=== PATIENT | male | born 1995 | race Caucasian/White ===

== ENCOUNTER 2019-04-04 11:42 | Emergency (ER) | payer SELFPAY ==
[~2019-04-04] VITALS: Ht 193 cm; Wt 68.2 kg
[2019-04-04 13:33] VITALS: BP 121/76
== END 2019-04-04 13:35 | disposition home or self-care (01) ==
LOC: ED 12:30
DX: R07.89 Other chest pain (principal); E86.0 Dehydration
CPT/HCPCS: 36415; 71045; 80053; 85025; 96361; 96374; 99284; J2060; J7030